=== PATIENT | female | born 1980 | race African-American/Black ===

== ENCOUNTER 2019-03-14 13:22 | Emergency (ER) | payer OTHER ==
[~2019-03-14] VITALS: Ht 160 cm; Wt 87.0 kg
[2019-03-14 13:23] VITALS: BP 131/68
[2019-03-14] MEDS ORDERED: NORC1TAB7 PO (14:19)
[2019-03-14] MEDS ORDERED: PENI500T PO (14:19)
== END 2019-03-14 14:30 | disposition home or self-care (01) ==
LOC: M ED 13:22
DX: K04.7 Periapical abscess without sinus (principal)